=== PATIENT | female | born 1950 | race Caucasian/White ===

== ENCOUNTER 2020-09-08 10:43 | Emergency (ER) | payer MEDICARE ==
[2020-09-08 11:22] LABS: BASOPHIL 0.6 % (0-2); EOSINOPHIL 5.7 % (0-7); HCT 39.8 % (37.0-47.0); HGB 13.3 g/dl (12.5-16.0); LYMPHOCYTE 12.8 % (15-48); MCH 30.7 pg (25.0-31.0); MCHC 33.4 g/dL (32.0-36.0); MCV 91.9 fL (78.0-100.0); MPV 10.5 fL (6.0-9.5); NEUTROPHIL 70.6 % (41-80); NRBC 0; PLT 174 K/uL (150-400); RBC 4.33 M/uL (4.20-5.40); RDW 12.9 % (11.5-14.0); WBC 6.8 K/uL (4.0-10.5)
[2020-09-08 11:44] LABS: ALBUMIN 3.7 g/dL (3.4-5.0); BUN/CREAT RATIO (CALC) 9.5 RATIO; CREATININE 2.75 mg/dL (0.51-0.95); GLOBULIN (CALCULATION) 4.2 g/dL; POTASSIUM 3.7 mmol/L (3.5-5.1); TOTAL PROTEIN 7.9 g/dL (6.4-8.2)
[2020-09-08 12:27] LABS: BILIRUBIN NEGATIVE (NEGATIVE); BLOOD NEGATIVE Ery/uL (NEGATIVE); CLARITY CLEAR (CLEAR); COLOR YELLOW (YELLOW); GLUCOSE (U) TRACE mg/dL (NORMAL); LEUKOCYTES TRACE Leu/uL (NEGATIVE); NITRITE NEGATIVE (NEGATIVE); PROTEIN 3+ mg/dL (NEGATIVE); SPECIFIC GRAVITY 1.025 (1.001-1.030); UROBILINOGEN 0.2 mg/dL (0.2-1.0); pH 6.5 (5.0-9.0)
[2020-09-08 12:32] LABS: AMORPHOUS URATES CRYSTALS MODERATE; BACTERIA 1+; GRANULAR CASTS TRACE
== END 2020-09-08 13:00 | disposition home or self-care (01) ==
LOC: FER 10:43
PROVIDERS: Emergency Medicine
DX: G45.9 Transient cerebral ischemic attack, unspecified (principal); I10 Essential (primary) hypertension; E11.9 Type 2 diabetes mellitus without complications; Z88.4 Allergy status to anesthetic agent; Z88.0 Allergy status to penicillin; Z79.82 Long term (current) use of aspirin; Z79.899 Other long term (current) drug therapy
CPT/HCPCS: 36415; 70450; 80053; 81001; 84443; 85025

== ENCOUNTER 2020-09-13 15:13 | Emergency (ER) | payer MEDICARE ==
[2020-09-13 18:41] LABS: ALBUMIN 3.3 g/dL (3.4-5.0); BILIRUBIN - TOTAL 0.6 mg/dL (0.2-1.0); CREATININE 2.61 mg/dL (0.51-0.95); GLOBULIN (CALCULATION) 4.2 g/dL; POTASSIUM 3.7 mmol/L (3.5-5.1); TOTAL PROTEIN 7.5 g/dL (6.4-8.2)
[2020-09-13 19:21] LABS: BILIRUBIN NEGATIVE (NEGATIVE); BLOOD NEGATIVE Ery/uL (NEGATIVE); CLARITY CLEAR (CLEAR); COLOR YELLOW (YELLOW); GLUCOSE (U) TRACE mg/dL (NORMAL); LEUKOCYTES NEGATIVE Leu/uL (NEGATIVE); NITRITE NEGATIVE (NEGATIVE); PROTEIN 2+ mg/dL (NEGATIVE); UROBILINOGEN 0.2 mg/dL (0.2-1.0); pH 6.5 (5.0-9.0)
[2020-09-13 19:27] LABS: BACTERIA TRACE
== END 2020-09-13 20:20 | disposition home or self-care (01) ==
LOC: FER 15:13
PROVIDERS: Emergency Medicine
DX: E83.52 Hypercalcemia (principal); H57.04 Mydriasis; I10 Essential (primary) hypertension; Z86.73 Personal history of transient ischemic attack (TIA), and cerebral infarction without residual deficits; Z88.0 Allergy status to penicillin; Z88.4 Allergy status to anesthetic agent
CPT/HCPCS: 36415; 80053; 81001; 99285

== ENCOUNTER 2021-11-01 12:55 | Day surgery (SDCO) | payer MEDICARE ==
[~2021-11-01] VITALS: Ht 152.4 cm; Wt 76.3 kg
[2021-11-01 13:15] LABS: BASOPHIL 0.2 % (0-2); EOSINOPHIL 0 % (0-7); HCT 35.7 % (37.0-47.0); HGB 11.6 g/dl (12.5-16.0); LYMPHOCYTE 16.8 % (15-48); MCH 29.9 pg (25.0-31.0); MCHC 32.5 g/dL (32.0-36.0); MONOCYTE 13.5 % (0-12); MPV 10.8 fL (6.0-9.5); NEUTROPHIL 69.3 % (41-80); NRBC 0; PLT 101 K/uL (150-400); RBC 3.88 M/uL (4.20-5.40); RDW 13.6 % (11.5-14.0); WBC 5.4 K/uL (4.0-10.5)
[2021-11-01 13:33] LABS: ALBUMIN 3.5 g/dL (3.4-5.0); BUN/CREAT RATIO (CALC) 14.2 RATIO; CREATININE 3.66 mg/dL (0.51-0.95); GLOBULIN (CALCULATION) 3.6 g/dL; POTASSIUM 4.5 mmol/L (3.5-5.1); TOTAL PROTEIN 7.1 g/dL (6.4-8.2)
[2021-11-01 13:36] LABS: LACTIC ACID 1.6 mmol/L (0.4-1.9)
[2021-11-01 15:49] LABS: BILIRUBIN NEGATIVE (NEGATIVE); BLOOD 2+ Ery/uL (NEGATIVE); CLARITY CLEAR (CLEAR); COLOR YELLOW (YELLOW); GLUCOSE (U) 1+ mg/dL (NORMAL); LEUKOCYTES NEGATIVE Leu/uL (NEGATIVE); NITRITE NEGATIVE (NEGATIVE); PROTEIN 2+ mg/dL (NEGATIVE); SPECIFIC GRAVITY 1.025 (1.001-1.030); UROBILINOGEN 0.2 mg/dL (0.2-1.0)
[2021-11-01 15:55] LABS: BACTERIA 2+
[2021-11-01] MEDS ORDERED: AMLODIPINE BESY10 MG PO (17:25)
[2021-11-01] MEDS ORDERED: ATORVASTATIN CA40 MG PO (17:26)
[2021-11-01] MEDS ORDERED: CARVEDILOL12.5 MG PO (17:27)
[2021-11-01] MEDS ORDERED: ALL DAY ALLERGY10 M2 PO (17:28)
[2021-11-01] MEDS ORDERED: MOTRIN600 MG PO ×2 (17:29→17:30)
[2021-11-01] MEDS ORDERED: IRBESARTAN150 MG PO (17:30)
[2021-11-01] MEDS ORDERED: LEVEMIR FL100 UNIT/1 SC (17:31)
[2021-11-01] MEDS ORDERED: LEVEMIR VI100 UNITS/ SC (17:32)
[2021-11-01] MEDS ORDERED: REMERON15 MG PO (17:33)
[2021-11-01] MEDS ORDERED: MUCINEX 600MG600 MG PO (17:33)
[2021-11-01] MEDS ORDERED: ONDANSETRON ODT4 MG PO (17:34)
[2021-11-01] MEDS ORDERED: PAXIL10 MG PO (17:35)
[2021-11-01] MEDS ORDERED: PAXLOVID 150-11 EACH PO (17:36)
[2021-11-01] MEDS ORDERED: SEROQUEL 25MG T25 MG PO ×3 (17:36→17:37)
[2021-11-01] MEDS ORDERED: VITAMIN D21250 MCG PO (17:38)
[2021-11-02 06:47] LABS: BASOPHIL 0.3 % (0-2); EOSINOPHIL 0.3 % (0-7); HCT 34.3 % (37.0-47.0); HGB 11.1 g/dl (12.5-16.0); LYMPHOCYTE 23.7 % (15-48); MCH 29.7 pg (25.0-31.0); MCHC 32.4 g/dL (32.0-36.0); MCV 91.7 fL (78.0-100.0); MONOCYTE 10.7 % (0-12); MPV 10.6 fL (6.0-9.5); NEUTROPHIL 64.5 % (41-80); NRBC 0; PLT 98 K/uL (150-400); RBC 3.74 M/uL (4.20-5.40); RDW 13.6 % (11.5-14.0); WBC 3.8 K/uL (4.0-10.5)
[2021-11-02 07:10] LABS: BILIRUBIN - TOTAL 0.5 mg/dL (0.2-1.0); BUN/CREAT RATIO (CALC) 14.6 RATIO; C-REACTIVE PROTEIN 4.3 mg/dL (<=0.90); CREATININE 3.08 mg/dL (0.51-0.95)
[2021-11-03 07:14] LABS: BASOPHIL 0 % (0-2); EOSINOPHIL 0 % (0-7); HCT 34.8 % (37.0-47.0); HGB 11.4 g/dl (12.5-16.0); LYMPHOCYTE 15.5 % (15-48); MCH 29.6 pg (25.0-31.0); MCHC 32.8 g/dL (32.0-36.0); MCV 90.4 fL (78.0-100.0); MONOCYTE 3.8 % (0-12); MPV 10.8 fL (6.0-9.5); NEUTROPHIL 80.4 % (41-80); NRBC 0; PLT 100 K/uL (150-400); RBC 3.85 M/uL (4.20-5.40); RDW 13.4 % (11.5-14.0); WBC 2.9 K/uL (4.0-10.5)
[2021-11-03 07:56] LABS: ALBUMIN 2.8 g/dL (3.4-5.0); BILIRUBIN - TOTAL 0.3 mg/dL (0.2-1.0); BUN/CREAT RATIO (CALC) 16.2 RATIO; CREATININE 2.78 mg/dL (0.51-0.95); GLOBULIN (CALCULATION) 3.8 g/dL; POTASSIUM 4.4 mmol/L (3.5-5.1); TOTAL PROTEIN 6.6 g/dL (6.4-8.2)
[2021-11-03] MEDS ORDERED: DEXAMETHASONE 2M2 MG PO (09:19)
--- NOTE | 2021-11-03 10:24 | NUR ---
11/03/21 Per Ashlie Pathak, Ms. Eleno may return to [facility]. Please call report to: [phone] and fax DS to: [phone].
--- NOTE | 2021-11-03 12:37 | NUR ---
ROOM AIR SAT AFTER WALKING 96%
== END 2021-11-03 12:46 | disposition home or self-care (01) ==
LOC: FER 12:55 → FMS 15:33
PROVIDERS: Emergency Medicine; Nurse Practitioner; ADMIT Internal Medicine
DX: U07.1 COVID-19 (principal); J96.01 Acute respiratory failure with hypoxia; G47.30 Sleep apnea, unspecified; N17.9 Acute kidney failure, unspecified; I12.9 Hypertensive chronic kidney disease with stage 1 through stage 4 chronic kidney disease, or unspecified chronic kidney disease; E11.22 Type 2 diabetes mellitus with diabetic chronic kidney disease; N18.9 Chronic kidney disease, unspecified; R91.8 Other nonspecific abnormal finding of lung field; F03.90 Unspecified dementia, unspecified severity, without behavioral disturbance, psychotic disturbance, mood disturbance, and anxiety; F28 Other psychotic disorder not due to a substance or known physiological condition; E78.5 Hyperlipidemia, unspecified; Z88.0 Allergy status to penicillin; Z88.8 Allergy status to other drugs, medicaments and biological substances
CPT/HCPCS: 36415; 36600; 71045; 76705; 80053; 81001; 82803; 83605; 83615; 84145; 85025; 86140; 87040; 87088; 93005; 94010; 94762; 97162; 97166; 97530-GP; 97535; G0378; J0696; J1100; J1644; J2405; J7030; J8540; Q0162